=== PATIENT | female | born 1965 | race Caucasian/White ===

== ENCOUNTER → 2023-12-28 15:35 | Outpatient (REF) | payer BC, SELFPAY | LOC: PAVMRI 15:35 | PROVIDERS: ATTENDING PHYSICIAN Orthopaedic Surgery Sports Medicine; FAMILY PHYSICIAN Internal Medicine | DX: M23.304 Other meniscus derangements, unspecified medial meniscus, left knee (principal) | CPT/HCPCS: 73721 ==

== ENCOUNTER → 2024-04-06 13:17 | Outpatient (REF) | payer BC, SELFPAY | LOC: WDC 13:17 | PROVIDERS: ATTENDING PHYSICIAN Nurse Practitioner Family; FAMILY PHYSICIAN Internal Medicine | DX: Z12.31 Encounter for screening mammogram for malignant neoplasm of breast (principal) | CPT/HCPCS: 77063; 77067 ==

== ENCOUNTER → 2024-12-12 15:21 | Outpatient (REF) | payer BC, SELFPAY | LOC: RAD 15:21 | PROVIDERS: ATTENDING PHYSICIAN Obstetrics & Gynecology; FAMILY PHYSICIAN Internal Medicine | DX: Z01.818 Encounter for other preprocedural examination (principal) | CPT/HCPCS: 76830; 76856 ==

== ENCOUNTER 2025-05-23 11:58 | Outpatient (RCR) | payer BC, SELFPAY | END 2025-05-23 23:59 | disposition home or self-care (01) | LOC: RPT 11:58 | PROVIDERS: ATTENDING PHYSICIAN Obstetrics & Gynecology; FAMILY PHYSICIAN Internal Medicine | DX: M62.838 Other muscle spasm (principal); M62.89 Other specified disorders of muscle; N94.10 Unspecified dyspareunia; R39.15 Urgency of urination; Z98.890 Other specified postprocedural states | CPT/HCPCS: 97162; 97530 ==

== ENCOUNTER → 2025-06-05 09:09 | Outpatient (REF) | payer BC, SELFPAY | LOC: HWWDC 09:09 | PROVIDERS: ATTENDING PHYSICIAN Nurse Practitioner Family; FAMILY PHYSICIAN Internal Medicine | DX: Z12.31 Encounter for screening mammogram for malignant neoplasm of breast (principal) | CPT/HCPCS: 77063; 77067 ==

== ENCOUNTER 2025-07-09 10:24 | Outpatient (RCR) | payer BC, SELFPAY | END 2025-07-09 23:59 | disposition home or self-care (01) | LOC: RPT 10:24 | PROVIDERS: ATTENDING PHYSICIAN Internal Medicine | DX: M62.838 Other muscle spasm (principal); M62.89 Other specified disorders of muscle; N94.10 Unspecified dyspareunia; Z73.6 Limitation of activities due to disability; R39.15 Urgency of urination; Z98.890 Other specified postprocedural states | CPT/HCPCS: 97140; 97530 ==

== ENCOUNTER 2025-09-10 13:17 | Outpatient (RCR) | payer BC, SELFPAY | END 2025-09-10 23:59 | disposition home or self-care (01) | LOC: RPT 13:17 | PROVIDERS: ATTENDING PHYSICIAN Internal Medicine | DX: M62.838 Other muscle spasm (principal); M62.89 Other specified disorders of muscle; N94.10 Unspecified dyspareunia; Z73.6 Limitation of activities due to disability; R39.15 Urgency of urination; Z98.890 Other specified postprocedural states | CPT/HCPCS: 97110; 97112; 97140; 97530 ==